=== PATIENT | male | born 1990 | race Caucasian/White ===

== ENCOUNTER 2018-12-04 14:08 | Emergency (ER) | payer SELFPAY ==
[2018-12-04 14:09] VITALS: BP 125/75; PULSE 89; RESP 18; TEMP 37.5; O2SAT 97; BMI 23.6
--- NOTE | 2018-12-04 15:13 | ED.DEP ---
ED Disposition - Plan for ED Patient: Instructions: BACK PAIN w/ SCIATICA Prescriptions: cycloBENZAPRine HCl [Flexeril] 10 mg PO TID PRN #20 tablet PRN Reason: Muscle Spasm Naproxen [Naprosyn] 500 mg PO BID PRN #20 tablet Referrals: [facility] [NON-STAFF] -
--- NOTE | 2018-12-04 15:18 | ED.DCSUM_ITS ---
- ER Visit Summary Date of Service: 12/04/18 Chief Complaint: Right lower extremity pain History of Present Illness: The patient is a 28 M presenting with right lower extremity pain. Patient states this has been ongoing for the past several months. He states he has pain that starts in his right buttock and radiates to his right leg. He does a lot of weightlifting. He does not recall a specific injury. He has been taking ibuprofen. Denies numbness or weakness. Denies bowel or bladder incontinence. Denies fever. He is able to ambulate with pain. Denies other complaints. He does not currently have a primary care physician. Physical Examination: Vitals are stable. Patient is afebrile. Alert no acute distress. HEENT exam is unremarkable. Neck is supple. Lungs are clear and equal bilaterally. Heart is regular rate and rhythm. Abdomen is soft nontender nondistended. Back: Nontender. Straight leg raise +30 degrees on the right Extremities are unremarkable. Skin is warm and dry. No focal neurologic deficit. Normal strength and sensation Remainder of exam is unremarkable. Emergency Department Course and Treatment: Patient was given Toradol, Norflex IM. Patient is advised to follow-up with [facility]. Advised to return to the ED for worsening complaints. Disposition: Discharge home Impression: Right lower extremity pain, sciatica This note was generated with [employer] dictation software. It may contain incorrect words, spelling, and punctuation that were not noted in review of the chart prior to signing ED Disposition - Plan for ED Patient: Instructions: BACK PAIN w/ SCIATICA Prescriptions: cycloBENZAPRine HCl [Flexeril] 10 mg PO TID PRN #20 tab PRN Reason: Muscle Spasm Prescription Printed Naproxen [Naprosyn] 500 mg PO BID PRN #20 tab Prescription Printed Referrals: [facility] [NON-STAFF] -
[2018-12-04] MEDS: Ketorolac 60 MG/2 ML Vial IM (15:34)
[2018-12-04] MEDS: Orphenadrine 60 MG/2 ML Ampul IM (15:34)
[2018-12-04 16:02] VITALS: PULSE 88; RESP 17; O2SAT 97
== END 2018-12-04 16:04 | disposition home or self-care (01) ==
LOC: ED 15:09
PROVIDERS: Emergency Provider Emergency Medicine
DX: M79.604 Pain in right leg (principal); M54.31 Sciatica, right side; Z72.0 Tobacco use
CPT/HCPCS: 96372; 99282